=== PATIENT | female | born 1970 | race Caucasian/White ===

== ENCOUNTER 2017-06-11 12:07 | Emergency (ER) | payer SELFPAY ==
--- NOTE | 2017-06-11 13:02 | ER ---
Nurse's Notes [facility] Name: Justa Mcclure Age: 46 yrs Sex: Female : 1970 Arrival Date: 06/11/2017 Time: 12:11 Bed 8 Private MD: Diagnosis: Acute sinusitis;Otalgia, bilateral Presentation: 06/11 12:26 Presenting complaint: Patient states: my L ear is ringing, it started yesterday and its hj getting worse, now i have this headache that started today that runs down to my neck, reports nausea;. Transition of care: patient was not received from another setting of care. Onset of symptoms was June 11, 2017. Care prior to arrival: None. 12:26 Method Of Arrival: Ambulatory hj 12:26 Acuity: ELICIA 4 hj Triage Assessment: 12:29 General: Appears in no apparent distress. uncomfortable, Behavior is calm, cooperative, hj appropriate for age. Pain: Complains of pain in head. EENT: Reports ringing in left ear and right ear. 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 - Social history:: Smoking status: Patient uses tobacco products, denies chronic smoking, but will smoke occasionally. Screenin:42 Abuse screen: Denies threats or abuse. Nutritional screening: No deficits noted. ap3 Tuberculosis screening: No symptoms or risk factors identified. Fall Risk None identified. Assessment: 12:39 General: Appears uncomfortable, slender, Behavior is calm, cooperative. Pain: Complains ap3 of pain in base of the skull, right ear and left ear Pain began 1 day ago. Neuro: Level of Consciousness is awake, alert, obeys commands, Oriented to person, place, time, situation. Cardiovascular: Heart tones S1 S2 present Patient's skin is warm and dry. Respiratory: Airway is patent Breath sounds are clear bilaterally. GI: No signs and/or symptoms were reported involving the gastrointestinal system. : No signs and/or symptoms were reported regarding the genitourinary system. EENT: Reports pain in left ear and right ear. Derm: Skin is pink, warm \T\ dry. Musculoskeletal: Reports pain in base of the skull, left ear and right ear since patient states the pain began around 153Saturday June 10, 2017. Vital Signs: 12:29 BP 119 / 92; Pulse 85; Resp 18; Temp 97.6(TE); Pulse Ox 99% on R/A; Weight 54.43 kg; hj Height 5 ft. 2 in. (157.48 cm); Pain 7/10; 13:27 BP 127 / 80; Pulse 73; Pulse Ox 98% on R/A; ap3 12:29 Body Mass Index 21.95 (54.43 kg, 157.48 cm) ED Course: 12:11 Patient arrived in ED. mr 12:27 Triage completed. hj 12:29 Arm band placed on right wrist. hj 12:32 Charley Domingo is Primary Nurse. ap3 12:33 Ricardo Rodarte NP is PHCP. pm1 12:33 Ascencion Lopez MD is Attending Physician. pm1 12:43 Patient has correct armband on for positive identification. Bed in low position. Call ap3 light in reach. Pulse ox on. NIBP on. 12:53 Primary Nurse role handed off by Charley Domingo jl7 12:53 Che Waldrop RN is Primary Nurse. jl7 13:28 No provider procedures requiring assistance completed. IV discontinued. ap3 Administered Medications: 13:10 Drug: Decadron - Dexamethasone 10 mg Route: IVP; Site: Other; jl7 13:29 Follow up: Response: No adverse reaction; Pain is decreased jl7 Outcome: 13:02 Discharge ordered by . pm1 13:28 Discharged to home ambulatory. ap3 13:28 Condition: stable 13:28 Discharge instructions given to patient, Instructed on discharge instructions, follow up and referral plans. medication usage, Demonstrated understanding of instructions, Prescriptions given X 3. 13:30 Attestation : I agree with everything documented by Charley Student Nurse. jl7 13:30 Patient left the ED. jl7 Signatures: Moni Membreno Henry, RN RN Ricardo Rodarte NP WIRE TAPER pm1 Che Waldrop RN RN jl7 Charley Domingo ap3 Corrections: (The following items were deleted from the chart) 12:31 12:29 Pulse 85bpm; Resp 18bpm; Pulse Ox 99% RA; Temp 97.6F Temporal; 54.43 kg; Height 5 hj ft. 2 in.; BMI: 21.9; Pain 7/10; hj 13:05 12:26 Acuity: ELICIA 3 hj hj
--- NOTE | 2017-06-11 13:03 | EDPHYS ---
Physician Documentation [facility] Name: Justa Mcclure Age: 46 yrs Sex: Female : 1970 Arrival Date: 06/11/2017 Time: 12:11 Bed 8 Private MD: ED Physician Ascencion Lopez HPI: 06/11 13:00 This 46 yrs old Female presents to ER via Ambulatory with complaints of Ear pm1 Pain. 13:00 The patient presents with pain, that is acute. pm1 13:00 The complaints affect the left ear. Onset: The symptoms/episode began/occurred pm1 yesterday. Modifying factors: The symptoms are alleviated by nothing, the symptoms are aggravated by nothing. Associated signs and symptoms: Pertinent positives: tinnitus, sinus trouble, Pertinent negatives: cough, fever, shortness of breath. Severity of symptoms: in the emergency department the symptoms are unchanged. The patient has not experienced similar symptoms in the past. The patient has not recently seen a physician. Patient with sinus pain and congestion for the past 1 month. Patient has been taking OTC decongestants without improvement. Yesterday patient with left ear pain and tinnitus.. 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 - Social history:: Smoking status: Patient uses tobacco products, denies chronic smoking, but will smoke occasionally. ROS: 13:00 Constitutional: Negative for fever, chills, and weight loss, Eyes: Negative for injury, pm1 pain, redness, and discharge. 13:00 Neck: Negative for injury, pain, and swelling, Cardiovascular: Negative for chest pain, palpitations, and edema, Respiratory: Negative for shortness of breath, cough, wheezing, and pleuritic chest pain, Abdomen/GI: Negative for abdominal pain, nausea, vomiting, diarrhea, and constipation, Back: Negative for injury and pain, MS/Extremity: Negative for injury and deformity, Skin: Negative for injury, rash, and discoloration, Neuro: Negative for headache, weakness, numbness, tingling, and seizure. 13:00 ENT: Positive for ear pain, sinus congestion, sinus pain, tinnitus, Negative for drainage from ear(s), sore throat. Exam: 13:00 Constitutional: This is a well developed, well nourished patient who is awake, alert, pm1 and in no acute distress. Eyes: Pupils equal round and reactive to light, extra-ocular motions intact. Lids and lashes normal. Conjunctiva and sclera are non-icteric and not injected. Cornea within normal limits. Periorbital areas with no swelling, redness, or edema. 13:00 Neck: Trachea midline, no thyromegaly or masses palpated, and no cervical lymphadenopathy. Supple, full range of motion without nuchal rigidity, or vertebral point tenderness. No Meningismus. Chest/axilla: Normal chest wall appearance and motion. Nontender with no deformity. No lesions are appreciated. Cardiovascular: Regular rate and rhythm with a normal S1 and S2. No gallops, murmurs, or rubs. Normal PMI, no JVD. No pulse deficits. Respiratory: Lungs have equal breath sounds bilaterally, clear to auscultation and percussion. No rales, rhonchi or wheezes noted. No increased work of breathing, no retractions or nasal flaring. Abdomen/GI: Soft, non-tender, with normal bowel sounds. No distension or tympany. No guarding or rebound. No evidence of tenderness throughout. Back: No spinal tenderness. No costovertebral tenderness. Full range of motion. Skin: Warm, dry with normal turgor. Normal color with no rashes, no lesions, and no evidence of cellulitis. MS/ Extremity: Pulses equal, no cyanosis. Neurovascular intact. Full, normal range of motion. 13:00 Head/face: Sinus tenderness, that is moderate, is located over the left frontal sinus and left maxillary sinus. 13:00 ENT: External ear(s): are unremarkable, Ear canal(s): are normal, TM's: are normal, Nose: is normal, Mouth: is normal, Posterior pharynx: is normal. 13:00 Neuro: Orientation: is normal, Motor: is normal, moves all fours, strength is normal, strength is 5/5 in all extremities, Sensation: is normal, no obvious gross deficits. Vital Signs: 12:29 BP 119 / 92; Pulse 85; Resp 18; Temp 97.6(TE); Pulse Ox 99% on R/A; Weight 54.43 kg; hj Height 5 ft. 2 in. (157.48 cm); Pain 7/10; 13:27 BP 127 / 80; Pulse 73; Pulse Ox 98% on R/A; ap3 12:29 Body Mass Index 21.95 (54.43 kg, 157.48 cm) hj MDM: 12:33 Patient medically screened. pm1 13:01 Data reviewed: vital signs. Data interpreted: Pulse oximetry: on room air is 99 %. pm1 Interpretation: normal. Counseling: I had a detailed discussion with the patient and/or guardian regarding: the historical points, exam findings, and any diagnostic results supporting the discharge/admit diagnosis, the need for outpatient follow up, to return to the emergency department if symptoms worsen or persist or if there are any questions or concerns that arise at home. Administered Medications: 13:10 Drug: Decadron - Dexamethasone 10 mg Route: IVP; Site: Other; [facility] 13:29 Follow up: Response: No adverse reaction; Pain is decreased 7 Disposition: 06/12 10:23 Co-signature as Attending Physician, Ascencion Lopez MD I agree with the assessment and [facility] plan of care. Disposition: 06/11/17 13:02 Discharged to Home. Impression: Acute sinusitis, Otalgia, bilateral. - Condition is Stable. - Discharge Instructions: Earache, Sinusitis, Adult. - Prescriptions for Augmentin 875- 125 mg Oral Tablet - take 1 tablet by ORAL route every 12 hours for 10 days; 20 tablet. Zyrtec- D 5-120 mg Oral Tablet Sustained Release 12 hr - take 1 tablet by ORAL route every 12 hours As needed; 20 tablet. Medrol (Ramiro) 4 mg Oral Tablets, Dose Pack - take 1 tablet by ORAL route as directed - follow package instructions; 1 packet. - Medication Reconciliation Form, Thank You Letter, Antibiotic Education form. - Follow up: Emergency Department; When: As needed; Reason: Worsening of condition. Follow up: Private Physician; When: 2 - 3 days; Reason: Recheck today's complaints, Continuance of care, Re-evaluation by your physician. - Problem is new. - Symptoms have improved. Signatures: Ascencion Lopez MD MD cha Joaquin, Henry, RN RN hj Ricardo Rodarte, SLIDE FORMING MACHINE OPERATOR SLIDE FORMING MACHINE OPERATOR pm1 Che Waldrop RN RN jl7 Charley Domingo ap3
[2017-06-11] MEDS ORDERED: DEXAMETHASONE 10 MG/ML VIAL ONE (13:26)
== END 2017-06-11 13:30 | disposition home or self-care (01) ==
LOC: ER 12:07
DX: J01.90 Acute sinusitis, unspecified (principal); J45.909 Unspecified asthma, uncomplicated; Z88.1 Allergy status to other antibiotic agents; Z91.048 Other nonmedicinal substance allergy status
CPT/HCPCS: 96374; 99283; J1100

== ENCOUNTER 2017-07-10 05:59 | Emergency (ER) | payer SELFPAY ==
[2017-07-10] MEDS ORDERED: ALBUTEROL 2.5 MG/3 ML NEB SOL ONE ×2 (06:33→06:38)
[2017-07-10] MEDS ORDERED: predniSONE 20 MG TAB ONE (06:34)
[2017-07-10] MEDS ORDERED: IPRATROPIUM BROM 0.5MG/2.5ML ONE ×2 (06:38)
[2017-07-10 07:16] LABS: Absolute Monocytes 0.9 K/uL (0.1-1.3); Absolute Neutrophil 7.9 K/uL (1.8-8.0); Basophils % 0.7 % (0-1.3); Eosinophils % 5.7 % (0-4.4); Hematocrit 40.5 % (36.0-45.0); Lymphocytes % 17.1 % (15.3-44.8); MCH 30.8 pg (27.0-35.0); MCV 91.1 fL (80-100); MPV 8.5 fL (7.6-11.3); Monocytes % 7.8 % (3.3-12.3); RBC Red Blood Cell Count 4.44 M/uL (3.86-4.86)
[2017-07-10 07:28] LABS: Potassium 4.1 mEq/L (3.6-5.0)
[2017-07-10 07:31] LABS: Albumin 3.8 g/dL (3.2-5.5); Bilirubin Total 0.4 mg/dL (0.3-1.2); Protein, Total 7.4 g/dL (6.0-8.3)
[2017-07-10 08:54] LABS: Urine Blood TRACE (NEG); Urine Glucose NEGATIVE (NEG); Urine Protein NEGATIVE (NEG); Urine Specific Gravity 1.005 (1.005-1.030)
--- NOTE | 2017-07-10 09:00 | RAD REPORT ---
EXAM DESCRIPTION: [place] (2 Views)07/10/2017 7:20 am CLINICAL HISTORY: Cough COMPARISON: February 2017 FINDINGS: The lungs appear clear of acute infiltrate. Peribronchial thickening is unchanged. The he art is normal size IMPRESSION: No acute abnormalities displayed
--- NOTE | 2017-07-10 09:02 | ER ---
Nurse's Notes [facility] Name: Justa Mcclure Age: 46 yrs Sex: Female : 1970 Arrival Date: 07/10/2017 Time: 06:00 Bed 5 Private MD: Rina Byrd C Diagnosis: Bronchitis, not specified as acute or chronic Presentation: 07/10 06:10 Presenting complaint: Patient states: Seen by Iva Byrd NP on Thursday and lp1 diagnosed with Bronchitis, sates taking meds prescribed with no relief, continuing feeling of shortness of breath; Denies fever. Transition of care: patient was not received from another setting of care. Onset of symptoms was July 10, 2017. Initial Sepsis Screen: Does the patient meet any 2 criteria? No. Patient's initial sepsis screen is negative. Does the patient have a suspected source of infection? No. Patient's initial sepsis screen is negative. Care prior to arrival: None. 06:10 Method Of Arrival: Ambulatory lp1 06:10 Acuity: ELICIA 3 lp1 Historical: - Allergies: 06:15 z pac; lp1 06:15 dye; lp1 - Home Meds: 06:15 Mucinex oral oral every 12 hours [Active]; Cipro 500 mg Oral tab 1 tab every 12 hours lp1 [Active]; pantoprazole 40 mg oral TbEC 1 tab once daily [Active]; fluticasone 50 mcg/actuation nasal spsn 1 spray once daily [Active]; buspirone 10 mg Oral tab 1 tab 3 times per day [Active]; Stiolto Respimat 2.5-2.5 mcg/actuation inhalation mist 2 puffs once daily [Active]; - PMHx: 06:15 Asthma; GERD; lp1 - PSHx: 06:15 Kidney surgery; lp1 - Immunization history:: Adult Immunizations up to date. - Social history:: Smoking status: Patient uses tobacco products, smokes one-half pack cigarettes per day. Screenin:13 Abuse screen: Denies threats or abuse. Denies injuries from another. Nutritional mg2 screening: No deficits noted. Tuberculosis screening: No symptoms or risk factors identified. 06:16 Fall Risk None identified. lp1 Assessment: 06:15 General: Appears uncomfortable, ill, Behavior is appropriate for age. Pain: Complains lp1 of pain in chest. Neuro: Level of Consciousness is awake, alert, obeys commands, Oriented to person, place, time, situation. Cardiovascular: Patient's skin is warm and dry. Respiratory: Reports shortness of breath Respiratory effort is even, unlabored, Respiratory pattern is regular, symmetrical, Breath sounds are diminished bilaterally. Onset: The symptoms/episode began/occurred gradually. GI: Abdomen is non-distended. : No signs and/or symptoms were reported regarding the genitourinary system. EENT: No signs and/or symptoms were reported regarding the EENT system. Derm: Skin is pink, warm \T\ dry. Musculoskeletal: Circulation, motion, and sensation intact. 07:00 Reassessment: Patient appears in no apparent distress at this time. Patient and/or sg family updated on plan of care and expected duration. Pain level reassessed. Patient is alert, oriented x 3, equal unlabored respirations, skin warm/dry/pink. 09:33 Reassessment: Patient appears in no apparent distress at this time. Patient and/or sv family updated on plan of care and expected duration. Pain level reassessed. Patient is alert, oriented x 3, equal unlabored respirations, skin warm/dry/pink. Vital Signs: 06:12 BP 114 / 69; Pulse 70; Resp 16; Temp 97.8(TE); Pulse Ox 96% on R/A; Weight 53.07 kg; lp1 Height 5 ft. 2 in. (157.48 cm); 06:54 BP 107 / 66; Pulse 78; Resp 18; Pulse Ox 100% on Nebulizer Mask; mg2 08:21 BP 93 / 48; Pulse 75; Resp 18; Pulse Ox 99% on R/A; jb1 09:05 BP 98 / 63; Pulse 77; Resp 17; Pulse Ox 97% on R/A; sg 06:12 Body Mass Index 21.40 (53.07 kg, 157.48 cm) lp1 ED Course: 06:00 Patient arrived in ED. am2 06:00 Rina Byrd FNP is Private Physician. am2 06:02 [facility] pm1 06:02 Carmelo Chester MD is Attending Physician. pm1 06:10 Eugenie Stiles, KEYSHAWN is Primary Nurse. lp1 06:12 Triage completed. lp1 06:12 Arm band placed on left wrist. lp1 06:13 Patient has correct armband on for positive identification. Bed in low position. Call mg2 light in reach. Noise minimized. 06:53 No provider procedures requiring assistance completed. Inserted saline lock: 20 gauge mg2 in left antecubital area, using aseptic technique. 07:20 Chest Pa And Lat (2 Views) XRAY In Process Unspecified. EDMS 08:03 Primary Nurse role handed off by Eugenie Stiles, RN 08:03 Sanchez Green, RN is Primary Nurse. sg 08:20 Urine collected: clean catch specimen, cloudy, alonzo colored. jb1 09:32 IV discontinued, intact, bleeding controlled, No redness/swelling at site. Pressure sv dressing applied. Administered Medications: 06:52 Drug: predniSONE 60 mg Route: PO; mg2 09:31 Follow up: Response: No adverse reaction sv 06:53 Drug: Albuterol - atroVENT (3:1) (2.5 mg - 0.5 mg) 3 ml Route: Nebulizer; mg2 09:31 Follow up: Response: No adverse reaction sv 09:30 Drug: Tussionex Pennkinetic ER 5 ml Route: PO; sv 09:31 Follow up: Response: Medication administered at discharge. sv Outcome: 09:01 Discharge ordered by MD. pm1 09:32 Discharged to home ambulatory, with family. sv 09:32 Condition: stable 09:32 Discharge instructions given to patient, Instructed on discharge instructions, follow up and referral plans. medication usage, Demonstrated understanding of instructions, follow-up care, medications, Prescriptions given X 3. 09:33 Patient left the ED. sv Signatures: Dispatcher [employer] EDOK Romero Anguiano jb1 Iva Salvador RN RN Sanchez Green, RN KEYSHAWN Eugenie Stiles, KEYSHAWN RN lp1 Ricardo Rodarte NP MORNING SHOW PRODUCER pm1 Charley Spivey am2 Sudeep Joyner RN RN mg2
--- NOTE | 2017-07-10 09:02 | EDPHYS ---
Physician Documentation [facility] Name: Justa Mcclure Age: 46 yrs Sex: Female : 1970 Arrival Date: 07/10/2017 Time: 06:00 Bed 5 Private MD: Rina Byrd C ED Physician ChesterCarmelo HPI: 07/10 08:30 This 46 yrs old Female presents to ER via Ambulatory with complaints of pm1 Cough, General Weakness. 08:30 The patient or guardian reports cough, with productive sputum, that is yellow. Onset: pm1 The symptoms/episode began/occurred 1 week(s) ago. Severity of symptoms: in the emergency department the symptoms are unchanged. Modifying factors: The symptoms are alleviated by nothing, the symptoms are aggravated by nothing. Associated signs and symptoms: Pertinent negatives: chest pain, fever, nausea, sore throat, vomiting. The patient has experienced similar episodes in the past, a few times. The patient has been recently seen by a physician: the patient's primary care provider, Iva Byrd SUPERVISOR HOUSECLEANER. Prescribed Cipro, inhaler steroid sample, mucinex. Patient reports no improvement in her symptoms. Historical: - Allergies: 06:15 z pac; lp1 06:15 dye; lp1 - Home Meds: 06:15 Mucinex oral oral every 12 hours [Active]; Cipro 500 mg Oral tab 1 tab every 12 hours lp1 [Active]; pantoprazole 40 mg oral TbEC 1 tab once daily [Active]; fluticasone 50 mcg/actuation nasal spsn 1 spray once daily [Active]; buspirone 10 mg Oral tab 1 tab 3 times per day [Active]; Stiolto Respimat 2.5-2.5 mcg/actuation inhalation mist 2 puffs once daily [Active]; - PMHx: 06:15 Asthma; GERD; lp1 - PSHx: 06:15 Kidney surgery; lp1 - Immunization history:: Adult Immunizations up to date. - Social history:: Smoking status: Patient uses tobacco products, smokes one-half pack cigarettes per day. ROS: 08:30 Constitutional: Negative for fever, chills, and weight loss, Eyes: Negative for injury, pm1 pain, redness, and discharge, ENT: Negative for injury, pain, and discharge, Neck: Negative for injury, pain, and swelling, Cardiovascular: Negative for chest pain, palpitations, and edema. 08:30 Abdomen/GI: Negative for abdominal pain, nausea, vomiting, diarrhea, and constipation, Back: Negative for injury and pain, : Negative for injury, bleeding, discharge, and swelling, MS/Extremity: Negative for injury and deformity, Skin: Negative for injury, rash, and discoloration, Neuro: Negative for headache, weakness, numbness, tingling, and seizure. 08:30 Respiratory: Positive for cough, shortness of breath, Negative for wheezing. Exam: 08:30 Constitutional: This is a well developed, well nourished patient who is awake, alert, pm1 and in no acute distress. Head/Face: Normocephalic, atraumatic. Eyes: Pupils equal round and reactive to light, extra-ocular motions intact. Lids and lashes normal. Conjunctiva and sclera are non-icteric and not injected. Cornea within normal limits. Periorbital areas with no swelling, redness, or edema. ENT: Nares patent. No nasal discharge, no septal abnormalities noted. Tympanic membranes are normal and external auditory canals are clear. Oropharynx with no redness, swelling, or masses, exudates, or evidence of obstruction, uvula midline. Mucous membranes moist. Neck: Trachea midline, no thyromegaly or masses palpated, and no cervical lymphadenopathy. Supple, full range of motion without nuchal rigidity, or vertebral point tenderness. No Meningismus. Chest/axilla: Normal chest wall appearance and motion. Nontender with no deformity. No lesions are appreciated. Cardiovascular: Regular rate and rhythm with a normal S1 and S2. No gallops, murmurs, or rubs. Normal PMI, no JVD. No pulse deficits. 08:30 Abdomen/GI: Soft, non-tender, with normal bowel sounds. No distension or tympany. No guarding or rebound. No evidence of tenderness throughout. Back: No spinal tenderness. No costovertebral tenderness. Full range of motion. Skin: Warm, dry with normal turgor. Normal color with no rashes, no lesions, and no evidence of cellulitis. MS/ Extremity: Pulses equal, no cyanosis. Neurovascular intact. Full, normal range of motion. 08:30 Respiratory: the patient does not display signs of respiratory distress, Respirations: normal, Breath sounds: are clear throughout. 08:30 Neuro: Orientation: is normal, Mentation: is normal, Motor: is normal, moves all fours, Sensation: is normal, no obvious gross deficits, Gait: is steady, at a normal pace, without difficulty. Vital Signs: 06:12 BP 114 / 69; Pulse 70; Resp 16; Temp 97.8(TE); Pulse Ox 96% on R/A; Weight 53.07 kg; lp1 Height 5 ft. 2 in. (157.48 cm); 06:54 BP 107 / 66; Pulse 78; Resp 18; Pulse Ox 100% on Nebulizer Mask; mg2 08:21 BP 93 / 48; Pulse 75; Resp 18; Pulse Ox 99% on R/A; jb1 09:05 BP 98 / 63; Pulse 77; Resp 17; Pulse Ox 97% on R/A; sg 06:12 Body Mass Index 21.40 (53.07 kg, 157.48 cm) lp1 MDM: 06:28 Patient medically screened. pm1 09:00 Data reviewed: vital signs. Data interpreted: Pulse oximetry: on room air is 99 %. pm1 Interpretation: normal. Counseling: I had a detailed discussion with the patient and/or guardian regarding: the historical points, exam findings, and any diagnostic results supporting the discharge/admit diagnosis, lab results, radiology results, the need for outpatient follow up, to return to the emergency department if symptoms worsen or persist or if there are any questions or concerns that arise at home. 07/10 06:29 Order name: CBC with Diff; Complete Time: 07:29 pm1 07/10 06:29 Order name: CMP; Complete Time: 07:59 pm07/10 06:29 Order name: Chest Pa And Lat (2 Views) XRAY; Complete Time: 09:08 pm07/10 08:29 Order name: Urine Dipstick--Ancillary (enter results); Complete Time: 09:08 eb 07/10 08:29 Order name: Urine --Ancillary (enter results); Complete Time: 09:08 eb 07/10 06:29 Order name: Urine Dipstick-Ancillary (obtain specimen); Complete Time: 08:21 pm1 07/10 06:29 Order name: Urine Test (obtain specimen); Complete Time: 08:21 pm1 Administered Medications: 06:52 Drug: predniSONE 60 mg Route: PO; mg2 09:31 Follow up: Response: No adverse reaction sv 06:53 Drug: Albuterol - atroVENT (3:1) (2.5 mg - 0.5 mg) 3 ml Route: Nebulizer; mg2 09:31 Follow up: Response: No adverse reaction sv 09:30 Drug: Tussionex Pennkinetic ER 5 ml Route: PO; sv 09:31 Follow up: Response: Medication administered at discharge. sv Disposition: 19:26 Co-signature as Attending Physician, Carmelo Chester MD. Disposition: 07/10/17 09:01 Discharged to Home. Impression: Bronchitis, not specified as acute or chronic. - Condition is Stable. - Discharge Instructions: Acute Bronchitis, How to Use an Inhaler, Smoking Cessation, Smoking, You Can Quit, [id number]. - Prescriptions for Prednisone 20 mg Oral Tablet - take 3 tablet by ORAL route once daily for 5 days; 15 tablet. Albuterol Sulfate 90 mcg/actuation - inhale 1-2 puff by INHALATION route every 4-6 hours; 1 Inhaler. Guaifenesin AC 10- 100 mg/5 mL Oral Liquid - take 10 milliliter by ORAL route every 4 hours As needed; 240 milliliter. - Work release form, Family Work Release, Medication Reconciliation Form, Thank You Letter, Antibiotic Education, Prescription Opioid Use form. - Follow up: Emergency Department; When: As needed; Reason: Worsening of condition. Follow up: Private Physician; When: 2 - 3 days; Reason: Recheck today's complaints, Continuance of care, Re-evaluation by your physician. - Problem is new. - Symptoms have improved. Signatures: Dispatcher [employer] Iva Daugherty, RN RN Eugenie Stiles, RN RN lp1 Ricardo Rodarte, SUPERVISOR HOUSECLEANER SUPERVISOR HOUSECLEANER pm1 Carmelo Chester MD MD Sudeep Joyner RN RN mg2 Corrections: (The following items were deleted from the chart) 09:02 09:01 07/10/2017 09:01 Discharged to Home. Impression: Chronic obstructive pulmonary pm1 disease with (acute) exacerbation. Condition is Stable. Forms are Medication Reconciliation Form, Thank You Letter, Antibiotic Education, Prescription Opioid Use. Follow up: Emergency Department; When: As needed; Reason: Worsening of condition. Follow up: Private Physician; When: 2 - 3 days; Reason: Recheck today's complaints, Continuance of care, Re-evaluation by your physician. Problem is new. Symptoms have improved. pm1 09:33 09:02 07/10/2017 09:01 Discharged to Home. Impression: Bronchitis, not specified as sv acute or chronic. Condition is Stable. Forms are Medication Reconciliation Form, Thank You Letter, Antibiotic Education, Prescription Opioid Use. Follow up: Emergency Department; When: As needed; Reason: Worsening of condition. Follow up: Private Physician; When: 2 - 3 days; Reason: Recheck today's complaints, Continuance of care, Re-evaluation by your physician. Problem is new. Symptoms have improved. pm1
[2017-07-10] MEDS ORDERED: HYDROCODONE/CHLORPHEN 5 ML/OSYR ONE (09:23)
== END 2017-07-10 09:33 | disposition home or self-care (01) ==
LOC: ER 05:59
DX: J40 Bronchitis, not specified as acute or chronic (principal)
CPT/HCPCS: 36415; 71046; 80053; 81003; 81025; 85025; 94640; 99284; J7512

== ENCOUNTER 2018-01-02 13:02 | Emergency (ER) | payer SELFPAY ==
[2018-01-02] MEDS ORDERED: MORPHINE 4 MG/ML SYR ONE ×2 (14:06→16:33)
[2018-01-02] MEDS ORDERED: ONDANSETRON 4 MG/2 ML VIAL ONE ×2 (14:07→16:33)
[2018-01-02] MEDS ORDERED: NA CHLORIDE 0.9% 1,000 ML ONE (14:07)
[2018-01-02 14:34] LABS: Absolute Lymphocytes (CBC) 2.8 K/uL (0.7-4.9); Absolute Monocytes 0.6 K/uL (0.1-1.3); Absolute Neutrophil 4.5 K/uL (1.8-8.0); Basophils % 1.2 % (0-1.3); Eosinophils % 5.5 % (0-4.4); Hematocrit 37.8 % (36.0-45.0); Lymphocytes % 32.7 % (15.3-44.8); MCH 30.5 pg (27.0-35.0); MCV 88.6 fL (80-100); MPV 8.4 fL (7.6-11.3); Monocytes % 7.4 % (3.3-12.3); RBC Red Blood Cell Count 4.27 M/uL (3.86-4.86)
[2018-01-02 14:49] LABS: ALT/SGPT 20 U/L (12-78); AST/SGOT 13 U/L (15-37); Albumin 3.5 g/dL (3.4-5.0); Alkaline Phosphatase 76 U/L (45-117); BUN Blood Urea Nitrogen 12 mg/dL (7-18); Bicarbonate 28 mmol/L (21-32); Bilirubin Direct < 0.1 mg/dL (0-0.2); Bilirubin Total 0.2 mg/dL (0.2-1.0); Glucose Level 100 mg/dL (74-106); Lipase 160 U/L (73-393); Potassium 4.4 mmol/L (3.5-5.1); Protein, Total 6.9 g/dL (6.4-8.2); Sodium Level 140 mmol/L (136-145)
[2018-01-02] MEDS ORDERED: DIPHENHYDRAMINE 25 MG TAB/CAP ONE (15:07)
--- NOTE | 2018-01-02 16:39 | RAD REPORT ---
EXAM DESCRIPTION: CT - Abdomen Pelvis W Contrast - 01/02/2018 4:13 pm CLINICAL HISTORY: Abdominal pain/right flank pain and nausea COMPARISON: none. TECHNIQUE: Computed axial tomography of the abdomen pelvis was obtained. 100 cc Isovue-300 was admin istered intravenously. Oral contrast was not requested which limits evaluation of bowel. All CT scans are performed using dose optimization technique as appropriate and may include automated exposure control or mA/KV adjustment according to patient size. FINDINGS: The liver, spleen, pancreas, and adrenals appear unremarkable. Bilateral renal cysts are p resent. The largest is in the left kidney measuring 27 millimeters There is no evidence of diverticulitis. The appendix is normal. 22 millimeter left ovarian cyst is seen without significant free-fluid Wall of a loop of jejunum is mildly thickened. Tiny umbilical hernia is seen IMPRESSION: 22 millimeter left ovarian cyst is seen without significant free-fluid Wall of a loop of jejunum is mildly thickened which may indicate inflammation
--- NOTE | 2018-01-02 17:26 | EDPHYS ---
Physician Documentation [facility] Name: Justa Mcclure Age: 47 yrs Sex: Female : 1970 Arrival Date: 01/02/2018 Time: 13:09 Bed 15 Private MD: ED Physician Carmelo Chester HPI: 01/02 14:01 This 47 yrs old Female presents to ER via Ambulatory with complaints of Flank jmm Pain. 14:01 The patient presents with abdominal pain in the periumbilical area. right lower jmm quadrant. Onset: The symptoms/episode began/occurred gradually, this morning. The symptoms. This is a 47 year old female with a history of GERD that presents to the ED with abdominal pain beginning this morning worsening. Denies fever, denies vomiting. Patient ate at 10 am with relief of pain. . DIRECTOR OF HEALTH EDUCATION: 13:23 LMP 12/23/2017 aj Historical: - Allergies: 13:23 dye; aj 13:23 z pac; aj - Home Meds: 13:23 buspirone 10 mg Oral tab 1 tab 3 times per day [Active]; pantoprazole 40 mg Oral TbEC 1 aj tab once daily [Active]; fluticasone 50 mcg/actuation nasal spsn 1 spray once daily [Active]; Stiolto Respimat 2.5-2.5 mcg/actuation inhalation mist 2 puffs once daily [Active]; Wellbutrin Oral [Active]; - PMHx: 13:23 Asthma; GERD; aj - PSHx: 13:23 Kidney surgery; aj - Immunization history:: Adult Immunizations up to date. - Social history:: Smoking status: Patient uses tobacco products, smokes one-half pack cigarettes per day. - Ebola Screening: : Patient negative for fever greater than or equal to 101.5 degrees Fahrenheit, and additional compatible Ebola Virus Disease symptoms Patient denies exposure to infectious person Patient denies travel to an Ebola-affected area in the 21 days before illness onset No symptoms or risks identified at this time. ROS: 14:01 Constitutional: Negative for fever, chills, and weight loss, Cardiovascular: Negative jmm for chest pain, palpitations, and edema, Respiratory: Negative for shortness of breath, cough, wheezing, and pleuritic chest pain. 14:01 Back: Negative for injury and pain, MS/Extremity: Negative for injury and deformity, Skin: Negative for injury, rash, and discoloration, Neuro: Negative for headache, weakness, numbness, tingling, and seizure. 14:01 Abdomen/GI: Positive for abdominal pain. 14:01 All other systems are negative. Exam: 14:01 Head/Face: atraumatic. Eyes: EOMI, no conjunctival erythema appreciated ENT: Moist [facility] Mucus Membranes Neck: Trachea midline, Supple Chest/axilla: Normal chest wall appearance and motion. Cardiovascular: Regular rate and rhythm. No edema appreciated Respiratory: Normal respirations, no respiratory distress appreciated 14:01 Constitutional: The patient appears in no acute distress, alert, awake. 14:01 Abdomen/GI: Inspection: abdomen appears normal, Bowel sounds: normal, Palpation: soft, moderate abdominal tenderness, in the umbilical area and right lower quadrant. 14:01 Back: ROM is normal. 14:01 Musculoskeletal/extremity: ROM: intact in all extremities. 14:01 Skin: Appearance: Color: normal in color. 14:01 Neuro: Orientation: is normal, Mentation: is normal, Memory: is normal. 14:01 Psych: Behavior/mood is pleasant, cooperative. Vital Signs: 13:23 BP 138 / 92; Pulse 98; Resp 17; Temp 98.6; Pulse Ox 97% on R/A; Weight 56.7 kg; Height aj 5 ft. 2 in. (157.48 cm); 14:00 BP 120 / 79; Pulse 77; Resp 16; Pulse Ox 99% on R/A; Pain 6/10; em 15:08 BP 120 / 54; Pulse 72; Resp 16; Pulse Ox 100% on R/A; Pain 0/10; em 16:00 BP 109 / 77; Pulse 76; Resp 18; Pulse Ox 99% on R/A; em 16:56 BP 104 / 82; Pulse 66; Resp 18; Pulse Ox 100% on R/A; Pain 3/10; em 13:23 Body Mass Index 22.86 (56.70 kg, 157.48 cm) aj MDM: 13:54 Patient medically screened. [facility] 17:23 Data reviewed: vital signs, nurses notes. Counseling: I had a detailed discussion with chito the patient and/or guardian regarding: the historical points, exam findings, and any diagnostic results supporting the discharge/admit diagnosis, radiology results, the need for outpatient follow up, to return to the emergency department if symptoms worsen or persist or if there are any questions or concerns that arise at home. 01/02 13:55 Order name: Basic Metabolic Panel; Complete Time: 15:02 [facility] 01/02 13:55 Order name: CBC with Diff; Complete Time: 15:02 [facility] 01/02 13:55 Order name: Creatinine for Radiology; Complete Time: 15:02 [facility] 01/02 13:55 Order name: Hepatic Function; Complete Time: 15:02 [facility] 01/02 13:55 Order name: Lipase; Complete Time: 15:02 [facility] 01/02 14:23 Order name: Urine Dipstick--Ancillary (enter results) 01/02 14:23 Order name: Urine --Ancillary (enter results) 01/02 15:18 Order name: Abdomen ; Complete Time: 16:53 [facility] 01/02 13:55 Order name: IV Saline Lock; Complete Time: 14:17 [facility] 01/02 13:55 Order name: Labs collected and sent; Complete Time: 14:17 [facility] 01/02 13:55 Order name: Urine Dipstick-Ancillary (obtain specimen); Complete Time: 14:17 [facility] 01/02 13:55 Order name: Urine Test (obtain specimen); Complete Time: 14:17 jm Administered Medications: 14:17 Drug: NS 0.9% 1000 ml Route: IV; Rate: 1 bolus; Site: left antecubital; em 14:53 Follow up: IV Status: Completed infusion; IV Intake: 1000ml em 14:18 Drug: morphine 4 mg Route: IVP; Site: left antecubital; aa5 14:53 Follow up: Response: No adverse reaction; Pain is decreased em 14:19 Drug: Zofran 4 mg Route: IVP; Site: left antecubital; aa5 14:53 Follow up: Response: No adverse reaction em 14:59 CANCELLED (other medication used): diphenhydrAMINE 25 mg IVP once [facility] 15:05 Drug: Benadryl 50 mg Route: PO; em 17:43 Follow up: Response: No adverse reaction em 17:44 Not Given (Patient Refused): morphine 4 mg IVP once em 17:44 Not Given (Patient Refused): Zofran 4 mg IVP once; over 2 minutes em Disposition: 17:50 Co-signature as Attending Physician, Carmelo Chester MD. Disposition: 01/02/18 17:25 Discharged to Home. Impression: Other and unspecified noninfective gastroenteritis and colitis. - Condition is Stable. - Discharge Instructions: Abdominal Pain, Adult. - Prescriptions for Cephalexin 500 mg Oral Capsule - take 1 capsule by ORAL route every 12 hours for 10 days; 20 capsule. Flagyl 500 mg Oral Tablet - take 1 tablet by ORAL route every 6 hours for 10 days; 40 tablet. Ultram 50 mg Oral Tablet - take 1 tablet by ORAL route every 6 hours As needed; 30 tablet. - Medication Reconciliation Form, Thank You Letter, Antibiotic Education, Prescription Opioid Use, Work release form form. - Follow up: Vishnu Cade MD; When: 2 - 3 days; Reason: Recheck today's complaints, Continuance of care, Re-evaluation by your physician. Signatures: Dispatcher [employer] [facility] Charley Castañeda, RN RN He Hahn PA PA [facility] Desean Eckert, ENTERPRISE INTEGRATION DEVELOPER ENTERPRISE INTEGRATION DEVELOPER Cata Flores, RN RN aa5 Carmelo Chester MD MD Corrections: (The following items were deleted from the chart) 14:59 14:59 diphenhydrAMINE 25 mg IVP once ordered. [facility] 15:18 14:50 Abdomen Pelvis Wo Con+CT.RAD.BRZ ordered. [facility] 15:19 13:55 Abdomen Pelvis W Con+CT.RAD.BRZ ordered. [facility] 17:45 17:25 01/02/2018 17:25 Discharged to Home. Impression: Other and unspecified em noninfective gastroenteritis and colitis. Condition is Stable. Forms are Medication Reconciliation Form, Thank You Letter, Antibiotic Education, Prescription Opioid Use. Follow up: Vishnu Cade; When: 2 - 3 days; Reason: Recheck today's complaints, Continuance of care, Re-evaluation by your physician. [facility]
--- NOTE | 2018-01-02 17:26 | ER ---
Nurse's Notes [facility] Name: Justa Mcclure Age: 47 yrs Sex: Female : 1970 Arrival Date: 01/02/2018 Time: 13:09 Bed 15 Private MD: Diagnosis: Other and unspecified noninfective gastroenteritis and colitis Presentation: 01/02 13:21 Presenting complaint: Patient states: Right flank pain, dark urine, and nausea that aj started suddenly this AM. Transition of care: patient was not received from another setting of care. Onset of symptoms was January 02, 2018. Risk Assessment: Do you want to hurt yourself or someone else? Patient reports no desire to harm self or others. Initial Sepsis Screen: Does the patient meet any 2 criteria? No. Patient's initial sepsis screen is negative. Does the patient have a suspected source of infection? No. Patient's initial sepsis screen is negative. Care prior to arrival: None. 13:21 Method Of Arrival: Ambulatory aj 13:21 Acuity: ELICIA 3 aj Triage Assessment: 13:23 General: Appears in no apparent distress. uncomfortable, Behavior is calm, cooperative, aj appropriate for age. Pain: Complains of pain in posterior aspect of right lateral abdomen and anterior aspect of right lateral abdomen. Neuro: Level of Consciousness is awake, alert, obeys commands, Oriented to person, place, time, situation, Appropriate for age. Respiratory: Airway is patent Respiratory effort is even, unlabored, Respiratory pattern is regular, symmetrical. GI: Reports nausea. : Reports pain in right flank(s). Derm: Skin is intact, is healthy with good turgor, Skin is pink, warm \\T\\ dry. normal. 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 - Social history:: Smoking status: Patient uses tobacco products, smokes one-half pack cigarettes per day. - Ebola Screening: : Patient negative for fever greater than or equal to 101.5 degrees Fahrenheit, and additional compatible Ebola Virus Disease symptoms Patient denies exposure to infectious person Patient denies travel to an Ebola-affected area in the 21 days before illness onset No symptoms or risks identified at this time. Screenin:48 Abuse screen: Denies threats or abuse. Nutritional screening: No deficits noted. em Tuberculosis screening: No symptoms or risk factors identified. Fall Risk None identified. Assessment: 13:45 General: Appears in no apparent distress. uncomfortable, Behavior is calm, cooperative, em Denies fever. Pain: Complains of pain in right upper quadrant and right lower quadrant Pain currently is 6 out of 10 on a pain scale. Neuro: Level of Consciousness is awake, alert, obeys commands, Oriented to person, place, time, situation, Speech is normal. Cardiovascular: Capillary refill < 3 seconds Patient's skin is warm and dry. Respiratory: Airway is patent Respiratory effort is even, unlabored, Respiratory pattern is regular, symmetrical. GI: Abdomen is flat, Bowel sounds present X 4 quads. Abd is soft X 4 quads Abdomen is tender to palpation in right upper quadrant and right lower quadrant Reports nausea, vomiting, Patient currently denies diarrhea. : Urine is clear. EENT: No signs and/or symptoms were reported regarding the EENT system. Derm: Skin is intact, Skin is pink, warm \\T\\ dry. Musculoskeletal: Capillary refill Range of motion: intact in all extremities. 13:45 Reassessment: I agree with assessment completed by Desean Eckert LVN . aa5 14:50 Reassessment: Patient appears in no apparent distress at this time. Patient and/or em family updated on plan of care and expected duration. Pain level reassessed. Patient is alert, oriented x 3, equal unlabored respirations, skin warm/dry/pink. pt reports has an allergic reaction when she was 12 years of age to "dye," provider notified, pt will be premedicated with PO Benadryl prior to CT Patient denies pain at this time. Patient states feeling better. Patient states symptoms have improved. 15:44 Reassessment: Patient appears in no apparent distress at this time. Patient and/or em family updated on plan of care and expected duration. Pain level reassessed. Patient is alert, oriented x 3, equal unlabored respirations, skin warm/dry/pink. pending CT, family member at bedside. 16:14 Reassessment: pt wheeled to CT via wheel chair. em 16:30 Reassessment: Patient appears in no apparent distress at this time. Patient and/or em family updated on plan of care and expected duration. Pain level reassessed. Patient is alert, oriented x 3, equal unlabored respirations, skin warm/dry/pink. pt c/o pain 3/10, when offered pain medication pt request to wait, provider notified, pt will let nurse know when pain become higher than 5/10. 17:30 Reassessment: Patient appears in no apparent distress at this time. Patient and/or em family updated on plan of care and expected duration. Pain level reassessed. Patient is alert, oriented x 3, equal unlabored respirations, skin warm/dry/pink. Vital Signs: 13:23 BP 138 / 92; Pulse 98; Resp 17; Temp 98.6; Pulse Ox 97% on R/A; Weight 56.7 kg; Height aj 5 ft. 2 in. (157.48 cm); 14:00 BP 120 / 79; Pulse 77; Resp 16; Pulse Ox 99% on R/A; Pain 6/10; em 15:08 BP 120 / 54; Pulse 72; Resp 16; Pulse Ox 100% on R/A; Pain 0/10; em 16:00 BP 109 / 77; Pulse 76; Resp 18; Pulse Ox 99% on R/A; em 16:56 BP 104 / 82; Pulse 66; Resp 18; Pulse Ox 100% on R/A; Pain 3/10; em 13:23 Body Mass Index 22.86 (56.70 kg, 157.48 cm) ED Course: 13:09 Patient arrived in ED. mr 13:22 Triage completed. aj 13:23 Arm band placed on right wrist. Patient placed in an exam room. aj 13:26 He Parry PA is PHCP. hilda 13:26 Carmelo Chester MD is Attending Physician. hilda 13:41 Desean Eckert LVN is Primary Nurse. em 13:48 Patient has correct armband on for positive identification. Placed in gown. Bed in low em position. Call light in reach. Side rails up X2. Adult w/ patient. 14:00 No provider procedures requiring assistance completed. Initial lab(s) drawn, by me, em sent to lab. Urine collected: clean catch specimen, clear. Inserted saline lock: 20 gauge in left antecubital area, using aseptic technique. Blood collected. 16:08 CT completed. Patient moved to CT via wheelchair. Patient moved back from CT. cw1 16:12 CT completed. Patient tolerated procedure well. Patient moved back from CT. cw1 16:13 Abdomen In Process Unspecified. EDMS 17:24 Vishnu Cade MD is Referral Physician. jmm 17:42 IV discontinued, intact, bleeding controlled, No redness/swelling at site. Pressure em dressing applied. Administered Medications: 14:17 Drug: NS 0.9% 1000 ml Route: IV; Rate: 1 bolus; Site: left antecubital; em 14:53 Follow up: IV Status: Completed infusion; IV Intake: 1000ml em 14:18 Drug: morphine 4 mg Route: IVP; Site: left antecubital; aa5 14:53 Follow up: Response: No adverse reaction; Pain is decreased em 14:19 Drug: Zofran 4 mg Route: IVP; Site: left antecubital; aa5 14:53 Follow up: Response: No adverse reaction em 14:59 CANCELLED (other medication used): diphenhydrAMINE 25 mg IVP once jmm 15:05 Drug: Benadryl 50 mg Route: PO; em 17:43 Follow up: Response: No adverse reaction em 17:44 Not Given (Patient Refused): morphine 4 mg IVP once em 17:44 Not Given (Patient Refused): Zofran 4 mg IVP once; over 2 minutes em Intake: 14:53 IV: 1000ml; Total: 1000ml. em Outcome: 17:25 Discharge ordered by . jmm 17:42 Discharged to home ambulatory, with family. em 17:42 Condition: good 17:42 Discharge instructions given to patient, family, Instructed on discharge instructions, follow up and referral plans. medication usage, Demonstrated understanding of instructions, follow-up care, medications, Prescriptions given X 3. 17:45 Patient left the ED. em Signatures: Dispatcher [employer] Charley Saucedo, RN RN He Hahn PA PA jmm Rivera, Mary mr Desean Eckert, REELING MACHINE SETUP OPERATOR REELING MACHINE SETUP OPERATOR Cata Stephenson, RN RN aa5 Lisseth Vail cw1
[2018-01-02 20:23] LABS: Urine Blood NEGATIVE (NEG); Urine Glucose NEGATIVE (NEG); Urine Protein NEGATIVE (NEG); Urine Specific Gravity 1.015 (1.005-1.030); Urine pH 7.5 (5.0-7.0)
== END 2018-01-02 17:45 | disposition home or self-care (01) ==
LOC: ER 13:02
DX: K52.89 Other specified noninfective gastroenteritis and colitis (principal); K21.9 Gastro-esophageal reflux disease without esophagitis; F17.210 Nicotine dependence, cigarettes, uncomplicated; Z88.1 Allergy status to other antibiotic agents; Z91.048 Other nonmedicinal substance allergy status
CPT/HCPCS: 36415; 74177; 80048; 80076; 81003; 81025; 83690; 85025; 96361; 96374; 96375; 99284; J2405; J7030; Q9967

== ENCOUNTER 2018-07-03 00:09 | Observation (INO) | payer OTHER ==
[2018-07-03] MEDS ORDERED: ACETAMINOPHEN 500 MG TAB PO PRN (00:31)
[2018-07-03] MEDS ORDERED: ONDANSETRON 4 MG/2 ML VIAL IV PRN (00:31)
--- NOTE | 2018-07-03 00:40 | ER ---
Nurse's Notes [facility] Name: Justa Mcclure Age: 47 yrs Sex: Female : 1970 Arrival Date: 07/03/2018 Time: 00:10 Bed 5 Private MD: Rina Byrd C Diagnosis: Asthma;Hypoxemia;Dyspnea, unspecified Presentation: 07/03 00:17 Presenting complaint: Patient states: "I am having an asthma exasperation. I already jd3 did an albuterol treatment, but it didn't help.". Transition of care: patient was not received from another setting of care. Onset of symptoms was July 03, 2018. Risk Assessment: Do you want to hurt yourself or someone else? Patient reports no desire to harm self or others. Initial Sepsis Screen: Does the patient meet any 2 criteria? RR > 20 per min. HR > 90 bpm. Yes Does the patient have a suspected source of infection? No. Patient's initial sepsis screen is negative. Care prior to arrival: Medication(s) given: Albuterol Neb x 1. 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 - Social history:: Smoking status: Patient uses tobacco products, denies chronic smoking, but will smoke occasionally. - Ebola Screening: : Patient negative for fever greater than or equal to 101.5 degrees Fahrenheit, and additional compatible Ebola Virus Disease symptoms. - Family history:: not pertinent. Screenin:03 Abuse screen: Denies threats or abuse. Denies injuries from another. Nutritional ak1 screening: No deficits noted. Tuberculosis screening: No symptoms or risk factors identified. Fall Risk None identified. 01:04 Abuse screen: Denies threats or abuse. Denies injuries from another. Nutritional ao screening: No deficits noted. Tuberculosis screening: No symptoms or risk factors identified. Fall Risk None identified. Assessment: 00:40 General: Appears in no apparent distress. comfortable, Behavior is calm, cooperative, ao appropriate for age. Pain: Complains of pain in chest. Neuro: Level of Consciousness is awake, alert, Oriented to person, place, time, situation, Appropriate for age Moves all extremities. Full function Speech is normal, Facial symmetry appears normal. Cardiovascular: Heart tones S1 S2. Respiratory: Reports shortness of breath at rest cough that is Airway is patent Respiratory effort is labored, Respiratory pattern is hyperventilation. GI: No signs and/or symptoms were reported involving the gastrointestinal system. : No signs and/or symptoms were reported regarding the genitourinary system. EENT: No signs and/or symptoms were reported regarding the EENT system. Derm: No signs and/or symptoms reported regarding the dermatologic system. Musculoskeletal: Circulation, motion, and sensation intact. Range of motion: intact in all extremities. 01:30 Reassessment: Report called to KEYSHAWN Duncan. Patient to be transferred to room 207. ao Patient stable and in no distress at this time. Vital Signs: 00:20 BP 108 / 72; Pulse 97; Resp 24 S; Temp 97.9(O); Pulse Ox 94% on R/A; Weight 54.43 kg jd3 (R); Height 5 ft. 2 in. (157.48 cm) (R); Pain 0/10; 01:15 BP 108 / 65; Pulse 94; Resp 20; Pulse Ox 99% on R/A; Pain 0/10; ao 00:20 Body Mass Index 21.95 (54.43 kg, 157.48 cm) jd3 ED Course: 00:10 Patient arrived in ED. am2 00:10 Rina Byrd FNP is Private Physician. am2 00:19 Triage completed. jd3 00:19 Ascencion Lopez MD is Attending Physician. linda 00:21 Arm band placed on. jd3 00:28 Kris Molina MD is Hospitalizing Provider. linda 00:35 First set of blood cultures drawn by me, Second set of blood cultures drawn by me. ak1 00:45 Chava Venegas RN is Primary Nurse. ao 00:45 Inserted saline lock: 20 gauge in left antecubital area, using aseptic technique. Blood ao collected. 01:04 Patient has correct armband on for positive identification. Bed in low position. Call ak1 light in reach. Side rails up X 1. Adult w/ patient. Pulse ox on. NIBP on. 01:04 Patient has correct armband on for positive identification. learning manager on. Pulse ao ox on. NIBP on. 01:05 No provider procedures requiring assistance completed. ak1 01:32 Patient admitted, IV remains in place. ao Administered Medications: 00:49 Drug: SOLU-Medrol 125 mg Route: IVP; Site: left antecubital; jd3 01:01 Follow up: Response: No adverse reaction ak1 00:49 Drug: predniSONE 40 mg Route: PO; jd3 01:01 Follow up: Response: No adverse reaction ak1 00:49 Drug: Albuterol - atroVENT (3:1) (2.5 mg - 0.5 mg) 3 ml Route: Nebulizer; jd3 01:33 Follow up: Response: No adverse reaction ak1 00:49 Drug: levofloxacin 500 mg Volume: 100 ml; Route: IVPB; Infused Over: 60 mins; Site: j left antecubital; 01:34 Follow up: IV Status: Completed infusion; IV Intake: 100ml ao 00:49 Drug: NS 0.9% 1000 ml Route: IV; Rate: 125 ml/hr; Site: left antecubital; jd3 01:35 Follow up: IV Status: Infusion continued upon admission ao Intake: 01:34 IV: 100ml; Total: 100ml. ao Outcome: 00:38 Decision to Hospitalize by Provider. linda 01:31 Admitted to Med/surg accompanied by tech, room 207, with chart, Report called to deirdre Butcher RN 01:31 Condition: stable 01:31 Instructed on the need for admit. 01:50 Patient left the ED. ak1 Signatures: Ascencion Lopez MD MD cha Krenek, Amber, RN RN ak1 Chava Venegas RN RN Charley Cowan Jonathon, RN RN jd3
--- NOTE | 2018-07-03 00:40 | EDPHYS ---
Physician Documentation [facility] Name: Justa Mcclure Age: 47 yrs Sex: Female : 1970 Arrival Date: 07/03/2018 Time: 00:10 Bed 5 Private MD: Rina Byrd C ED Physician Ascencion Lopez HPI: 07/03 00:23 This 47 yrs old Female presents to ER via Ambulatory with complaints of linda Asthma Exacerbation. 00:23 The patient presents to the emergency department with wheezing, Current therapy:. linda Onset: The symptoms/episode began/occurred 2 day(s) ago. Modifying factors: The symptoms are alleviated by nothing, the symptoms are aggravated by nothing. Associated signs and symptoms: Pertinent positives:. Severity of symptoms: At their worst the symptoms were mild moderate in the emergency department the symptoms are unchanged. Severity of symptoms: At their worst the symptoms were moderate just prior to arrival. The patient has experienced similar episodes in the past, multiple times. 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 - Social history:: Smoking status: Patient uses tobacco products, denies chronic smoking, but will smoke occasionally. - Ebola Screening: : Patient negative for fever greater than or equal to 101.5 degrees Fahrenheit, and additional compatible Ebola Virus Disease symptoms. - Family history:: not pertinent. ROS: 00:23 Constitutional: Negative for fever, chills, and weight loss, Eyes: Negative for injury, linda pain, redness, and discharge, ENT: Negative for injury, pain, and discharge, Neck: Negative for injury, pain, and swelling, Cardiovascular: Negative for chest pain, palpitations, and edema, Abdomen/GI: Negative for abdominal pain, nausea, vomiting, diarrhea, and constipation, Back: Negative for injury and pain, : Negative for injury, bleeding, discharge, and swelling, MS/Extremity: Negative for injury and deformity, Skin: Negative for injury, rash, and discoloration, Neuro: Negative for headache, weakness, numbness, tingling, and seizure, Psych: Negative for depression, anxiety, suicide ideation, homicidal ideation, and hallucinations, Allergy/Immunology: Negative for hives, rash, and allergies, Endocrine: Negative for neck swelling, polydipsia, polyuria, polyphagia, and marked weight changes, Hematologic/Lymphatic: Negative for swollen nodes, abnormal bleeding, and unusual bruising. 00:23 Respiratory: Positive for cough, shortness of breath, wheezing, inspiratory, expiratory. 00:23 MS/extremity: Negative for acute changes. Exam: 00:23 Constitutional: This is a well developed, well nourished patient who is awake, alert, linda and in no acute distress. Head/Face: Normocephalic, atraumatic. Eyes: Pupils equal round and reactive to light, extra-ocular motions intact. Lids and lashes normal. Conjunctiva and sclera are non-icteric and not injected. Cornea within normal limits. Periorbital areas with no swelling, redness, or edema. ENT: Nares patent. No nasal discharge, no septal abnormalities noted. Tympanic membranes are normal and external auditory canals are clear. Oropharynx with no redness, swelling, or masses, exudates, or evidence of obstruction, uvula midline. Mucous membranes moist. Neck: Trachea midline, no thyromegaly or masses palpated, and no cervical lymphadenopathy. Supple, full range of motion without nuchal rigidity, or vertebral point tenderness. No Meningismus. Chest/axilla: Normal chest wall appearance and motion. Nontender with no deformity. No lesions are appreciated. Cardiovascular: Regular rate and rhythm with a normal S1 and S2. No gallops, murmurs, or rubs. Normal PMI, no JVD. No pulse deficits. Abdomen/GI: Soft, non-tender, with normal bowel sounds. No distension or tympany. No guarding or rebound. No evidence of tenderness throughout. Back: No spinal tenderness. No costovertebral tenderness. Full range of motion. Skin: Warm, dry with normal turgor. Normal color with no rashes, no lesions, and no evidence of cellulitis. MS/ Extremity: Pulses equal, no cyanosis. Neurovascular intact. Full, normal range of motion. Neuro: Awake and alert, GCS 15, oriented to person, place, time, and situation. Cranial nerves II-XII grossly intact. Motor strength 5/5 in all extremities. Sensory grossly intact. Cerebellar exam normal. Normal gait. Psych: Awake, alert, with orientation to person, place and time. Behavior, mood, and affect are within normal limits. 00:23 Respiratory: mild respiratory distress is noted, moderate respiratory distress is noted, Respirations: labored breathing, that is moderate, Breath sounds: bronchial sounds, decreased breath sounds, rhonchi, that are moderate, stridor, is not appreciated, + upper airway congestion. wheezing: inspiratory expiratory 00:25 Musculoskeletal/extremity: DVT Exam: No signs of deep vein thrombosis. no pain, no linda swelling, no tenderness, negative Homans' sign noted on exam, no appreciated bluish discoloration, no erythema, no increased warmth. Vital Signs: 00:20 BP 108 / 72; Pulse 97; Resp 24 S; Temp 97.9(O); Pulse Ox 94% on R/A; Weight 54.43 kg jd3 (R); Height 5 ft. 2 in. (157.48 cm) (R); Pain 0/10; 01:15 BP 108 / 65; Pulse 94; Resp 20; Pulse Ox 99% on R/A; Pain 0/10; ao 00:20 Body Mass Index 21.95 (54.43 kg, 157.48 cm) jd3 MDM: 00:19 Patient medically screened. [facility] 00:25 Data reviewed: vital signs, nurses notes, lab test result(s), EKG, radiologic studies, linda plain films. 07/03 00:21 Order name: Basic Metabolic Panel [facility] 07/03 00:21 Order name: CBC with Diff [facility] 07/03 00:21 Order name: LFT's [facility] 07/03 00:21 Order name: Magnesium [facility] 07/03 00:21 Order name: NT PRO-BNP [facility] 07/03 00:21 Order name: PT-INR [facility] 07/03 00:21 Order name: Troponin (emerg Dept Use Only) [facility] 07/03 00:21 Order name: XRAY Chest (1 view) [facility] 07/03 00:21 Order name: Blood Culture Adult (2) [facility] 07/03 00:22 Order name: Basic Metabolic Panel EDMS 07/03 00:22 Order name: CBC with Automated Diff EDMS 07/03 00:35 Order name: Lipid Profile [facility] 07/03 00:35 Order name: Lipid Profile [facility] 07/03 00:21 Order name: EKG; Complete Time: 00:[address] [facility] 07/03 00:21 Order name: Cardiac monitoring; Complete Time: 00:[address] [facility] 07/03 00:21 Order name: EKG - Nurse/Tech; Complete Time: 00:[address] [facility] 07/03 00:21 Order name: IV Saline Lock; Complete Time: 00:[address] [facility] 07/03 00:21 Order name: Labs collected and sent; Complete Time: 00:[address] [facility] 07/03 00:21 Order name: O2 Per Protocol; Complete Time: 00: [facility] 07/03 00:21 Order name: O2 Sat Monitoring; Complete Time: 00: [facility] 07/03 00:21 Order name: Urine Dipstick-Ancillary (obtain specimen); Complete Time: 01:[address] [facility] 07/03 00:35 Order name: Regular EDMS Administered Medications: 00:49 Drug: SOLU-Medrol 125 mg Route: IVP; Site: left antecubital; jd3 01:01 Follow up: Response: No adverse reaction ak1 00:49 Drug: predniSONE 40 mg Route: PO; jd3 01:01 Follow up: Response: No adverse reaction ak1 00:49 Drug: Albuterol - atroVENT (3:1) (2.5 mg - 0.5 mg) 3 ml Route: Nebulizer; jd3 01:33 Follow up: Response: No adverse reaction ak1 00:49 Drug: levofloxacin 500 mg Volume: 100 ml; Route: IVPB; Infused Over: 60 mins; Site: [facility] left antecubital; 01:34 Follow up: IV Status: Completed infusion; IV Intake: 100ml ao 00:49 Drug: NS 0.9% 1000 ml Route: IV; Rate: 125 ml/hr; Site: left antecubital; jd3 01:35 Follow up: IV Status: Infusion continued upon admission ao Disposition: 07/03/18 00:38 Hospitalization ordered by Kris Molina for Inpatient Admission. Preliminary diagnosis are Asthma, Hypoxemia, Dyspnea, unspecified. - Bed requested for Telemetry/MedSurg (Inpatient). - Status is Inpatient Admission. ak1 - Condition is Fair. - Problem is new. - Symptoms have improved. UTI on Admission? No Signatures: Dispatcher [employer] EDMS Stephanie Castillo RN RN Ascencion Raymundo MD MD cha Krenek, Amber RN RN ak1 Chava Venegas RN Randy Mathews RN RN jd3 Corrections: (The following items were deleted from the chart) 00:52 00:38 Hospitalization Ordered by Kris Molina MD for Inpatient Admission. Preliminary diagnosis is Asthma; Hypoxemia; Dyspnea, unspecified. Bed requested for Telemetry/MedSurg (Inpatient). Status is Inpatient Admission. Condition is Fair. Problem is new. Symptoms have improved. UTI on Admission? No. [facility] 01:50 00:52 07/03/2018 00:38 Hospitalization Ordered by Kris Molina MD for Inpatient ak1 Admission. Preliminary diagnosis is Asthma; Hypoxemia; Dyspnea, unspecified. Bed requested for Telemetry/MedSurg (Inpatient). Status is Inpatient Admission. Condition is Fair. Problem is new. Symptoms have improved. UTI on Admission? No.
[2018-07-03] MEDS ORDERED: METHYLPREDNISOLONE 125 MG INJ ONE (00:48)
[2018-07-03] MEDS ORDERED: Levofloxacin500mg IV 500 MG/100 ML BAG IV ONE (00:49)
[2018-07-03] MEDS ORDERED: predniSONE 20 MG TAB ONE (00:49)
[2018-07-03 00:55] LABS: Absolute Lymphocytes (CBC) 4.5 K/uL (0.7-4.9); Absolute Monocytes 0.7 K/uL (0.1-1.3); Absolute Neutrophil 5.7 K/uL (1.8-8.0); Eosinophils % 6.6 % (0-4.4); Hematocrit 40.8 % (36.0-45.0); Lymphocytes % 38.2 % (15.3-44.8); MPV 8.5 fL (7.6-11.3); Monocytes % 6.2 % (3.3-12.3); Protime INR 0.85; RBC Red Blood Cell Count 4.52 M/uL (3.86-4.86)
[2018-07-03] MEDS ORDERED: NA CHLORIDE 0.9% 1,000 ML IV SCH (01:00)
[2018-07-03 01:18] LABS: ALT/SGPT 31 U/L (12-78); AST/SGOT 32 U/L (15-37); Albumin 3.6 g/dL (3.4-5.0); Alkaline Phosphatase 112 U/L (45-117); BUN Blood Urea Nitrogen 11 mg/dL (7-18); Bicarbonate 28 mmol/L (21-32); Bilirubin Direct < 0.1 mg/dL (0-0.2); Bilirubin Total 0.2 mg/dL (0.2-1.0); Glucose Level 109 mg/dL (74-106); Magnesium 2.2 mg/dL (1.8-2.4); NT PRO-BNP 35 pg/mL (<125); Potassium 3.8 mmol/L (3.5-5.1); Protein, Total 7.3 g/dL (6.4-8.2); Sodium Level 141 mmol/L (136-145); Troponin (Emerg Dept Use Only) < 0.02 ng/mL (0.0-0.045)
[2018-07-03] MEDS: ALBUTEROL 2.5 MG/3 ML NEB SOL NEB SCH ×2 (02:00→07:00)
[2018-07-03] MEDS: IPRATROPIUM BROM 0.5MG/2.5ML NEB SCH ×2 (02:00→07:00)
[2018-07-03] MEDS ORDERED: POTASSIUM CL SA 10 MEQ TAB PO ONE (02:17)
[2018-07-03 03:38] VITALS: BMI 21.9
[2018-07-03] MEDS ORDERED: AZITHROMYCIN IV 500 MG in NA CHLORIDE 0.9% 250 ML IVPB SCH (06:00)
[2018-07-03 06:01] LABS: Phosphorus 1.4 mg/dL (2.5-4.9); Potassium 4.4 mmol/L (3.5-5.1)
[2018-07-03] MEDS ORDERED: METHYLPREDNISOLONE 125 MG INJ IV ONE (06:31)
[2018-07-03 06:38] LABS: Urine Appearance CLEAR; Urine Bilirubin NEGATIVE (NEG); Urine Blood NEGATIVE (NEG); Urine Color YELLOW; Urine Glucose NEGATIVE (NEG); Urine Protein NEGATIVE (NEG); Urine Urobilinogen 0.2 mg/dL (0.2-1.0); Urine pH 7.5 (5.0-7.0)
[2018-07-03 06:48] LABS: Urine Microscopic Reflex NO UMIC
[2018-07-03] MEDS: POTASS/SODIUM PHOSPHATE 1 PKT POWD.PACK PO SCH ×3 (08:39→11:29)
[2018-07-03] MEDS ORDERED: MONTELUKAST 10 MG TAB PO SCH (09:00)
[2018-07-03] MEDS ORDERED: LORATADINE 10 MG TAB PO SCH (09:00)
[2018-07-03] MEDS ORDERED: BUSPIRONE HCL 5 MG TABLET PO SCH (09:00)
[2018-07-03] MEDS ORDERED: ENOXAPARIN 40 MG/0.4 ML SQ SCH (09:00)
[2018-07-03] MEDS ORDERED: PANTOPRAZOLE 40MG TABLET PO SCH (09:00)
--- NOTE | 2018-07-03 09:50 | RAD REPORT ---
EXAM DESCRIPTION: [place]07/03/2018 1:47 am CLINICAL HISTORY: Shortness of breath COMPARISON: July 2017 FINDINGS: The lungs appear clear of acute infiltrate. The heart is normal size IMPRESSION: No acute abnormalities displayed
--- NOTE | 2018-07-03 10:28 | EKG ---
Test Date: 2018-07-03 Test Time: 00:31:02 Market Risk Analyst: CHRISTINE MEASUREMENT RESULTS: Intervals: Rate: 85 SD: 156 QRSD: 80 QT: 372 QTc: 442 [place]: P: 83 SD: 156 QRS: 74 T: 74 INTERPRETIVE STATEMENTS: Normal sinus rhythm Possible Left atrial enlargement Borderline ECG Compared to ECG 02/17/2017 07:22:20 No significant changes Electronically Signed On 07-03-18 10:28:03 CDT by Tylor Spring
[2018-07-03 11:05] VITALS: O2SAT 97
--- NOTE | 2018-07-03 11:44 | P.SSS ---
Patient History Date of Service: 07/03/18 Reason for admission: Shortness of breath History of Present Illness: 39-year-old female with significant past medical history of asthma and GERD who presented to the ED complaining of having some shortness of breath. Patient stated that she has asthma exacerbation had attended take Claritin for past couple of days however has not had any resolution of her symptoms. Patient also used her inhaler and her nebulizer at home without any relief. Patient thus was admitted to the hospital for asthma exacerbation. Allergies dye Allergy (Uncoded 07/03/18 02:05) Itching/Hives/Rash z pac Allergy (Uncoded 07/03/18 02:05) diarrhea Home Medications: Albuterol Neb [Proventil 0.083% Neb Soln] 2 puff IH BID PRN 07/03/18 Albuterol Sulfate [Proair Hfa] 2 puff IH Q4H PRN 07/03/18 Budesonide/Formoterol Fumarate [Symbicort 160-4.5 Mcg Inhaler] 2 puff IH BID Buspirone HCl [Buspar] 1 tab PO BID 07/03/18 Fluticasone [Flonase 50MCG Nasal [place]*] 1 spray IH SEECOM 07/03/18 Loratadine [Claritin*] 10 mg PO DAILY #30 tab 07/03/18 Montelukast Sodium [Singulair] 10 mg PO DAILY #30 tablet 07/03/18 Pantoprazole [Protonix Tab*] 1 tab PO DAILY 07/03/18 predniSONE [Deltasone] 5 mg PO DAILY #5 tab 07/03/18 - Past Medical/Surgical History Has patient received pneumonia vaccine in the past: No Diabetic: No -: asthma -: crohns -: GERD -: kidney surgery 1982 -: 1994 - Family History Mother -: Hypertension, Diabetes, Kidney disease, Other (see notes) Notes: asthma grandmother -: Cancer - Social History Smoking Status: Current some day smoker Alcohol use: Yes CD- Drugs: No Caffeine use: Yes Place of Residence: Home Review of Systems 10-point ROS is otherwise unremarkable Physical Examination - Vital Signs Temperature: 98.3 F Blood Pressure: 110/64 Pulse: 82 Respirations: 18 Pulse Ox (%): 97 - Physical Exam General: Alert, In no apparent distress HEENT: Atraumatic, PERRLA, Mucous membr. moist/pink, EOMI, Sclerae nonicteric Neck: Supple, 2+ carotid pulse no bruit, No LAD, Without JVD or thyroid abnormality Respiratory: Clear to auscultation bilaterally, Normal air movement Cardiovascular: Regular rate/rhythm, Normal S1 S2 Gastrointestinal: Normal bowel sounds, No tenderness Musculoskeletal: No tenderness Integumentary: No rashes Neurological: Normal gait, Normal speech, Normal strength at 5/5 x4 extr, Normal tone, Normal affect Lymphatics: No axilla or inguinal lymphadenopathy - Studies Microbiology Data (last 24 hrs): 07/03/18 00:15 Blood - Blood Anaerobic Blood Culture - Final - Diagnosis (Problem(s)) (1) Asthma exacerbation Current Visit: Yes Status: Acute Qualifiers: Asthma severity: moderate Asthma persistence: persistent Qualified Code(s ): J45.41 - Moderate persistent asthma with (acute) exacerbation Treatment Summary: Overall during the hospital stay patient remained stable Initially admitted to the hospital for asthma exacerbation. Was started on duo nebs, steroids, oxygen here in the hospital. Oxygen was successfully weaned off. Patient was saturating well on room air. After couple around the nebulizing treatments here in the hospital patient had marked improvement in his symptoms and thus was discharged home under stable condition. Patient was given a prescription for Singulair and Claritin along with prednisone to be taken for total 5 days. Patient was also asked to continue taking her albuterol as a rescue inhaler and her Symbicort as her maintenance inhaler. Patient was also given asthma action plan paper to follow during acute exacerbation. Patient demonstrate understanding and thus was discharged home under stable condition. - Disposition Disposition: ROUTINE DISCHARGE Condition: GOOD Patient Discharge Instructions: Please f.u with PCP and Dr Glover in 1 to 2 week post discharge. New medication. Singular 10mg daily as needed for Allergy. Prednisone 5mg daily for 5 days Diet: Regular Activity: Ad kemi
[2018-07-03] MEDS ORDERED: METHYLPREDNISOLONE 125 MG INJ IV SCH (12:00)
[2018-07-03 12:10] VITALS: BP 109/59; TEMP 98
--- NOTE | 2018-07-03 14:39 | P.HP ---
Certification for Inpatient Patient admitted to: Observation With expected LOS: <2 Midnights Patient will require the following post-hospital care: None Practitioner: I am a practitioner with admitting privileges, knowledge of patient current condition, hospital course, and medical plan of care. Services: Services provided to patient in accordance with Admission requirements found in Title 42 Section 412.3 of the Code of Federal Regulations Patient History Date of Service: 07/03/18 Reason for admission: Shortness of breath History of Present Illness: Patient is a 39-year-old female who came to the hospital with shortness of breath and expiratory wheezing. She has been using her rescue inhaler as well as her Symbicort with no success. Then she started using her nebulizer treatments and was still very short of breath. She finally decided to come into the hospital for further evaluation. She has been struggling with her breathing for the last couple of weeks. She says her allergies have been really bad this past month. She came into the hospital because her symptoms were very scary and she has been feeling she can get a lot of air into her lungs. She felt like this about 25 years ago when she was 1st diagnosed with asthma but she has never felt like this since that time. At this time she is wheezing and will need to be admitted to the hospital for an acute asthma exacerbation. Allergies dye Allergy (Uncoded 07/03/18 02:05) Itching/Hives/Rash z pac Allergy (Uncoded 07/03/18 02:05) diarrhea Home Medications: Albuterol Neb [Proventil 0.083% Neb Soln] 2 puff IH BID PRN 07/03/18 Albuterol Sulfate [Proair Hfa] 2 puff IH Q4H PRN 07/03/18 Budesonide/Formoterol Fumarate [Symbicort 160-4.5 Mcg Inhaler] 2 puff IH BID Buspirone HCl [Buspar] 1 tab PO BID 07/03/18 Fluticasone [Flonase 50MCG Nasal [place]*] 1 spray IH SEECOM 07/03/18 Loratadine [Claritin*] 10 mg PO DAILY #30 tab 07/03/18 Montelukast Sodium [Singulair] 10 mg PO DAILY #30 tablet 07/03/18 Pantoprazole [Protonix Tab*] 1 tab PO DAILY 07/03/18 predniSONE [Deltasone] 5 mg PO DAILY #5 tab 07/03/18 - Past Medical/Surgical History Has patient received pneumonia vaccine in the past: No Diabetic: No -: asthma -: crohns -: GERD -: kidney surgery 1982 -: 1994 - Family History Mother Medical History: Hypertension, Diabetes, Kidney disease, Other (see notes) Notes: asthma grandmother Medical History: Cancer - Social History Smoking Status: Current some day smoker Alcohol use: Yes CD- Drugs: No Caffeine use: Yes Place of Residence: Home Review of Systems 10-point ROS is otherwise unremarkable Physical Examination - Vital Signs Temperature: 98 F Blood Pressure: 109/59 Pulse: 80 Respirations: 16 Pulse Ox (%): 97 - Physical Exam General: Alert, In no apparent distress, Oriented x3 HEENT: Atraumatic, PERRLA, Mucous membr. moist/pink, EOMI, Sclerae nonicteric Neck: Supple, 2+ carotid pulse no bruit, No LAD, Without JVD or thyroid abnormality Respiratory: Expiratory wheezes Cardiovascular: Regular rate/rhythm, Normal S1 S2, No murmurs Gastrointestinal: Normal bowel sounds, Soft and benign, Non-distended, No tenderness Musculoskeletal: No clubbing, No swelling, No tenderness Integumentary: No rashes Neurological: Normal gait, Normal speech, Normal strength at 5/5 x4 extr, Normal tone, Sensation intact, Cranial nerves 3-12 intact, Normal affect Lymphatics: No axilla or inguinal lymphadenopathy - Studies Microbiology Data (last 24 hrs): 07/03/18 00:15 Blood - Blood Anaerobic Blood Culture - Final Assessment & Plan - Problems (Diagnosis) (1) Asthma exacerbation Status: Acute Qualifiers: Asthma severity: moderate Asthma persistence: persistent Qualified Code(s ): J45.41 - Moderate persistent asthma with (acute) exacerbation - Plan -nebs, steroids, and antibiotics -O2 per protocol. -peak flow measurements -outpatient spirometry or pulmonary function testing -repeat chest x-ray -pulmonary consultation Discharge Plan: Home Plan to discharge in: 24 Hours - Advance Directives Does patient have a Living Will: No Does patient have a Durable POA for Healthcare: No - Code Status/Comfort Care Code Status Assessed: Yes Code Status: Full Code Critical Care: No Time Spent Managing PTS Care (In Minutes): 45
[2018-07-03] MEDS ORDERED: levoFLOXacin 500 MG TAB PO SCH (21:00)
== END 2018-07-03 12:40 | disposition home or self-care (01) ==
LOC: ER 00:09 → ERHOLD 00:31 → 2ND 01:33
PROVIDERS: ADMIT Hospitalist; ATTEND Hospitalist
DX: J45.41 Moderate persistent asthma with (acute) exacerbation (principal); K21.9 Gastro-esophageal reflux disease without esophagitis
CPT/HCPCS: 36415; 71045; 80048; 80076; 81003; 83735; 83880; 84100; 84484; 85025; 85610; 87040; 93005; 94640; 96365; 96375; 99285; G0378; J1650; J2930; J7030; J7512